=== PATIENT | female | born 1950 | race Caucasian/White ===

== ENCOUNTER → 2018-03-30 12:45 | Outpatient (CLI) | payer MEDICARE, OTHER, SELFPAY ==
--- NOTE | 2018-03-30 | DI.RAD.S_ITS ---
PROCEDURE: XR KNEE RT 3V INDICATIONS: LOW BACK PAIN, RT KNEE PAIN TECHNIQUE: 3 views of the knee were acquired. COMPARISON: None. FINDINGS: Bones: No fractures or dislocations. No suspicious bony lesions. Tibial spine spurring is present. There is minimal narrowing of the lateral joint space there is also patellar spurring. Soft tissues: No joint effusion. No suspicious soft tissue calcifications. IMPRESSION: Minimal joint degeneration, probably age appropriate. If the patient symptoms continue, recommend further assessment with knee MRI without contrast Dictated by: Huy Herrera M.D. on 03/30/2018 at 15:19 Approved by: Huy Herrera M.D. on 03/30/2018 at 15:22
--- NOTE | 2018-03-30 | DI.RAD.S_ITS ---
PROCEDURE: XR LUMBAR SPINE 2-3V INDICATIONS: LOW BACK PAIN, RT KNEE PAIN TECHNIQUE: 2 views of the lumbar spine were acquired. COMPARISON: None. FINDINGS: Bones: No fracture or focal osseous destruction. Severe L5-S1 disc space narrowing. There is mild levocurvature. Mild diffuse facet arthropathy. Soft tissues: Overlying bowel gas pattern is normal. No suspicious soft tissue calcifications. IMPRESSION: Severe L5-S1 disc degeneration. Diffuse mild facet disease. Minimal levocurvature Dictated by: Huy Herrera M.D. on 03/30/2018 at 15:22 Approved by: Huy Herrera M.D. on 03/30/2018 at 15:23
== END ==
PROVIDERS: PCP Family Medicine; Visit Provider Family Medicine
DX: M54.5 Low back pain (principal); M25.561 Pain in right knee; M51.37 Other intervertebral disc degeneration, lumbosacral region; M47.817 Spondylosis without myelopathy or radiculopathy, lumbosacral region
CPT/HCPCS: 72100; 73562

== ENCOUNTER → 2018-10-02 18:27 | Outpatient (CLI) | payer MEDICARE, OTHER, SELFPAY ==
--- NOTE | 2018-10-02 | DI.MRI.S_ITS ---
PROCEDURE: MR ANKLE RT WO CON INDICATIONS: RIGHT ANKLE PAIN TECHNIQUE: Noncontrast sagittal T1 spin echo and T2 fast spin echo with fat saturation, axial proton density fast spin echo and T2 fast spin echo with fat saturation, coronal T1 spin echo and T2 fast spin echo with fat saturation through the ankle/hindfoot. COMPARISON: [facility], , ANKLE 3 VIEWS RIGHT, 06/13/2017, 17:07. FINDINGS: Image quality: Diagnostic. Bones and joints: There is no acute fracture, dislocation, or suspicious osseous lesion identified involving the osseous structures of the midfoot or hindfoot. Slight irregularity at the tip of the lateral malleolus is present without associated marrow edema, likely representing a chronic or previous injury. There is also bony irregularity identified along the dorsal aspect of the navicular at the talonavicular joint, also likely related to previous injury. Thickening of the overlying dorsal talonavicular ligament is suggestive of scarring. Ankle mortise is well-maintained. No osteochondral defects are evident involving the tibial plafond toward the talar dome. There are degenerative changes identified involving the posterior subtalar joint with heterogeneity noted involving an os trigonum. Posterior subtalar joint effusion is present. Mild degenerative changes of the calcaneocuboid joint are present along the plantar aspect of the joint space with an associated small effusion. There also are mild degenerative changes present involving the 3rd tarsometatarsal joint. Medial structures: The deltoid ligament and the spring ligament are intact. Thickening of the superomedial band of the spring ligament suggests scarring from previous partial thickness injury. The tibialis posterior, flexor digitorum longus, and flexor hallucis longus tendons are intact. A minimal amount of fluid is contained within it these flexor tendon sheaths. The posterior tibial nerve through the region of the tarsal tunnel appears to be within normal limits. Lateral structures: The anterior and posterior distal tibiofibular ligaments are intact. The anterior and posterior talofibular ligaments are intact. The calcaneofibular ligament is thickened, but noted to be intact. There is thickening and heterogeneity identified involving the peroneus brevis tendon just below level of the lateral malleolus. Small amount of fluid is contained within its corresponding tendon sheath. Mild prominence and slight increased signal involving the peroneus longus tendon is also present. There is mild increased signal identified within the region of the sinus tarsi. Anterior structures: The tibialis anterior, extensor hallucis longus, and extensor digitorum longus tendons appear intact. Posterior and plantar structures: Achilles tendon is intact. Medial and lateral bands of the plantar fascia are of normal thickness. IMPRESSION: 1. Moderate peroneus brevis and peroneus longus tendinopathy without significant tearing. 2. Probable scarring of the spring ligament and the calcaneofibular ligament. No full-thickness tears. 3. Mild medial flexor tendon tenosynovitis. No significant tendinopathy. 4. Mild degenerative changes of the hindfoot joints are most pronounced involving the talonavicular joint. An old injury along the dorsal aspect of the navicular is suspected. 5. Edema involving the os trigonum. Please correlate clinically to exclude os trigonum syndrome. 6. Nonspecific increased signal within the sinus tarsi. Dictated by: Washington Carlson M.D. on 10/03/2018 at 14:26 Approved by: Washington Carlson M.D. on 10/03/2018 at 15:04
--- NOTE | 2018-10-02 18:33 | DI.MRI.S_ITS ---
PROCEDURE: MR ORBITS FACE NECK WO CON INDICATIONS: NECK PAIN/INSTABILITY - MASS ON NECK TECHNIQUE: Scanning was performed of the neck, with the following imaging sequences obtained: T1-weighted coronal, T1-weighted sagittal, coronal STIR, sagittal STIR, axial T1-weighted and STIR axial COMPARISON: [facility], CERVICAL SPINE 2 OR 3 VIEWS, 06/02/2008, 9:57. FINDINGS: Image quality: Diagnostic. The area of clinical concern is marked with a soft tissue marker posteriorly along the midline of the neck superiorly. At this site, there is minimal soft tissue irregularity seen, yet without a mass or fluid collection seen. The limits of this study, no abnormalities are regional bony spinous processes can be seen. No enlarged lymph nodes are seen throughout. No MRI thyroid abnormality can be seen. The visualized lung apices are within normal limits. No fluid collections are seen. The spinal alignment is within normal limits. There is moderate disc space narrowing seen at C5-C6 and C6-C7, with associated moderate disc osteophyte complex. Moderate central canal narrowing can be seen at C5-C6. IMPRESSION: No soft tissue abnormality can be seen at the site of clinical concern involving the posterior superior neck along the midline. Cervical spine degenerative changes are seen, which are likely age-appropriate and most prominent at C5-C6. Dictated by: Guille Magdaleno M.D. on 10/03/2018 at 10:14 Approved by: uGille Magdaleno M.D. on 10/03/2018 at 10:18
== END ==
PROVIDERS: Family Provider Family Medicine; PCP Family Medicine; Visit Provider Family Medicine
DX: M54.2 Cervicalgia (principal); R22.1 Localized swelling, mass and lump, neck; M47.9 Spondylosis, unspecified; M25.571 Pain in right ankle and joints of right foot; M65.871 Other synovitis and tenosynovitis, right ankle and foot; R60.9 Edema, unspecified
CPT/HCPCS: 70540; 73721

== ENCOUNTER → 2018-10-06 09:30 | Outpatient (CLI) | payer MEDICARE, OTHER, SELFPAY ==
--- NOTE | 2018-10-06 | DI.MG.S_ITS ---
BILATERAL DIGITAL SCREENING MAMMOGRAM 3D/2D WITH CAD: 10/06/2018 CLINICAL: Routine screening. Comparison is made to exams dated: 05/10/2017 mammogram, 07/02/2013 mammogram, and 02/09/2012 mammogram - [facility]. The tissue of both breasts is heterogeneously dense. This may lower the sensitivity of mammography. Current study was also evaluated with a Computer Aided Detection (CAD) system. There are benign post operative findings in the left breast. No significant masses, calcifications, or other findings are seen in either breast. There has been no significant interval change. IMPRESSION: There is no mammographic evidence of malignancy. A 1 year screening mammogram is recommended. This exam was interpreted at Station ID: [id number]. NOTE: For mammograms, a report in lay terms will be sent to the patient. Approximately 15% of breast malignancies will not be visualized mammographically. In the management of a palpable breast mass, a negative mammogram must not discourage biopsy of a clinically suspicious lesion. Electronically Signed By: Candice [email or web address]/brenda:10/08/2018 09:24:29 letter sent: Normal Exam ACR BI-RADS Category 2: Benign Finding(s) 3342F
== END ==
PROVIDERS: Family Provider Family Medicine; PCP Family Medicine; Visit Provider Family Medicine
DX: Z12.31 Encounter for screening mammogram for malignant neoplasm of breast (principal)
CPT/HCPCS: 77063; 77067